=== PATIENT | female | born 1960 | race Two or more races ===

== ENCOUNTER → 2019-11-22 15:47 | Outpatient (CLI) | payer OTHER ==
[~2019-11-22 15:47] MED LIST: VYTORIN 10-201 EACH PO
== END | disposition home or self-care (01) ==
LOC: LAB 15:47
PROVIDERS: ATTEND Radiology Diagnostic Radiology
DX: N20.0 Calculus of kidney (principal)

== ENCOUNTER 2019-11-23 10:42 | Outpatient (CLI) | payer OTHER | END 2019-11-23 11:04 | disposition home or self-care (01) | LOC: TOM 10:42 → RAD 10:42 → TOM 11:15 | PROVIDERS: ATTEND Urology | DX: N28.1 Cyst of kidney, acquired (principal); C64.1 Malignant neoplasm of right kidney, except renal pelvis ==

== ENCOUNTER 2019-11-24 10:54 | Outpatient (CLI) | payer OTHER | END 2019-11-24 11:04 | disposition home or self-care (01) | LOC: LAB 10:54 | PROVIDERS: ATTEND Urology | DX: N28.1 Cyst of kidney, acquired (principal); C64.1 Malignant neoplasm of right kidney, except renal pelvis ==

== ENCOUNTER 2020-06-05 17:48 | Emergency (ER) | payer OTHER ==
[~2020-06-05] VITALS: Ht 160 cm; Wt 81.6 kg
[2020-06-05] MEDS ORDERED: NAPROXEN375 MG PO (18:51)
[2020-06-05] MEDS ORDERED: BACITRACIN-POL3.5 GM TOP (18:51)
== END 2020-06-05 19:01 | disposition home or self-care (01) ==
LOC: ER 17:48
DX: S51.011A Laceration without foreign body of right elbow, initial encounter (principal); W18.39XA Other fall on same level, initial encounter; Y93.E1 Activity, personal bathing and showering; Y92.091 Bathroom in other non-institutional residence as the place of occurrence of the external cause

== ENCOUNTER 2021-01-08 09:34 | Outpatient (CLI) | payer OTHER ==
[~2021-01-08 09:34] MED LIST changes: +BACITRACIN-POL3.5 GM TOP; +NAPROXEN375 MG PO
== END 2021-01-08 09:40 | disposition home or self-care (01) ==
LOC: LAB 09:34
PROVIDERS: ATTEND Urology
DX: N30.00 Acute cystitis without hematuria (principal); N31.1 Reflex neuropathic bladder, not elsewhere classified